=== PATIENT | female | born 1975 | race Caucasian/White ===

== ENCOUNTER 2020-05-30 07:32 | Outpatient (REF) | payer OTHER, SELFPAY ==
--- NOTE | ~2020-05-30 | XR_ITS ---
EXAMINATION: XR KNEE STANDING, BILATERAL XR KNEE, RIGHT XR KNEE, LEFT CLINICAL INFORMATION: Pain. COMPARISON: None. TECHNIQUE: AP standing views of the right and left knee as well as lateral and sunrise views of the right and left knee. FINDINGS: Right Knee: Mild medial compartment joint space narrowing tiny marginal osteophytes. No osseous erosion. No fracture or dislocation. No abnormal soft tissue calcification. No significant joint effusion. Left Knee: Tiny patellofemoral marginal osteophytes. No significant joint space narrowing. No osseous erosion. No fracture or dislocation. No abnormal soft tissue calcification. No significant joint effusion. IMPRESSION : RIGHT KNEE: Minimal medial compartment arthrosis. LEFT KNEE: Minimal patellofemoral compartment arthrosis.
== END 2020-05-30 07:33 | disposition home or self-care (01) ==
LOC: HO.HOSX 07:32
PROVIDERS: Visit Provider Orthopaedic Surgery
DX: M17.0 Bilateral primary osteoarthritis of knee (principal); M25.561 Pain in right knee; M25.562 Pain in left knee
CPT/HCPCS: 73560; 73565

== ENCOUNTER 2020-06-28 06:12 | Outpatient (REF) | payer OTHER, SELFPAY | END 2020-06-28 06:13 | disposition home or self-care (01) | LOC: HO.RADIR 06:12 | PROVIDERS: Visit Provider Anesthesiology | DX: Z13.89 Encounter for screening for other disorder (principal) ==